=== PATIENT | female | born 1995 | race Caucasian/White ===

== ENCOUNTER 2018-09-02 21:01 | Emergency (ER) | payer OTHER ==
[~2018-09-02] VITALS: Ht 172.7 cm; Wt 74.8 kg
[~2018-09-02 21:01] MED LIST: ALBU90OI INH; AMIT10 PO; AMOX500 PO; Bactrim Ds Tab1 EACH PO; CARI350 PO; CEPH500 PO; CIPR500 PO; CLON.2 PO; CYCL10 PO; DIPH50 PO; FERR325 PO; FLUO10 PO; GABA600 PO; HYDACE5 PO; HYDACE5325 PO; IBUP600 PO; IBUP800 PO; KETO10 PO; MELA3 PO; MULVITMINE PO; NALT50 PO; Norco 5-325 Ta1 EACH PO; PENVK500 PO; PERM5TC TOP; PHENA100 PO; PROM25 PO; PROM25S PR; Pepcid40 MG PO; Permethrin60 GM TOP; Pseudoephedrine30 MG PO; Pyridium200 MG PO; RXCYCL10 PO; RXHYDACE PO; RXOXYACE PO; RXTRAM50 PO; TRAM50 PO; [UNRECOGNIZED DRUG - OTHER]; [UNRECOGNIZED DRUG - SUPPLY]
[2018-09-02] MEDS ORDERED: Monodox100 MG PO (21:39)
[2018-09-02] MEDS ORDERED: PROP10 PO (21:41)
== END 2018-09-02 22:10 | disposition home or self-care (01) ==
LOC: ER 21:01
DX: L02.411 Cutaneous abscess of right axilla (principal); G43.909 Migraine, unspecified, not intractable, without status migrainosus; F17.210 Nicotine dependence, cigarettes, uncomplicated; Z79.899 Other long term (current) drug therapy; Z86.14 Personal history of Methicillin resistant Staphylococcus aureus infection
CPT/HCPCS: 10060; 99283-25

== ENCOUNTER 2019-03-28 12:16 | Emergency (ER) | payer OTHER ==
[~2019-03-28] VITALS: Ht 172.7 cm; Wt 70.3 kg
[~2019-03-28 12:16] MED LIST changes: +Monodox100 MG PO; +PROP10 PO
[2019-03-28 12:46] LABS: BASOPHILS ABSOLUTE AUTO 0.04 K/mm3 (0.00-0.23); BASOPHILS PERCENT AUTO 1 % (0-2); EOSINOPHILS ABSOLUTE AUTO 0.14 K/mm3 (0.00-0.68); EOSINOPHILS PERCENT AUTO 2 % (0-6); Hematocrit 37.6 % (33.0-51.0); Hemoglobin 12.7 g/dL (11.5-16.0); IMMATURE GRAN ABSOLUTE AUTO 0.01 K/mm3 (0.00-0.10); IMMATURE GRAN PERCENT AUTO 0 % (0-1); LYMPHOCYTES ABSOLUTE AUTO 1.64 K/mm3 (0.84-5.20); LYMPHOCYTES PERCENT AUTO 23 % (21-46); MONOCYTES ABSOLUTE AUTO 0.58 K/mm3 (0.16-1.47); MONOCYTES PERCENT AUTO 8 % (4-13); Mean Corpuscular HGB 30.9 pg (26.0-34.0); Mean Corpuscular HGB Conc 33.8 g/dL (31.5-36.5); Mean Corpuscular Volume 92 fL (80-100); Mean Platelet Volume 11.5 fL (9.1-12.4); NEUTROPHILS ABSOLUTE AUTO 4.64 K/mm3 (1.96-9.15); NEUTROPHILS PERCENT AUTO 66 % (41-73); Platelet Count 168 K/mm3 (150-400); RDW Coefficient Variation 12.2 % (11.7-14.2); RDW Standard Deviation 40.9 fL (35.1-46.3); Red Blood Cell Count 4.11 M/mm3 (3.80-5.20); White Blood Cell Count 7.05 K/mm3 (4.00-11.30)
[2019-03-28 13:07] LABS: Alanine Aminotransfer (ALT/SGP 23 U/L (12-78); Albumin, Blood 3.9 g/dL (3.4-5.0); Albumin/Globulin Ratio 1.2 (0.8-1.8); Alk Phos 74 U/L (50-136); Anion Gap 7 mmol/L (6-16); Aspartate Aminotrans (AST/SGOT 26 U/L (12-37); Bilirubin, Total 0.7 mg/dL (0.1-1.0); Blood Urea Nitrogen 12 mg/dL (8-24); Bun/Creatinine Ratio 19.4 (12.0-20.0); CO2, Blood 26 mmol/L (21-32); Calcium, Blood 8.8 mg/dL (8.5-10.1); Chloride, Blood 105 mmol/L (98-108); Creatinine, Blood 0.62 mg/dL (0.40-1.00); Globulin, Blood 3.3 g/dL (2.2-4.0); Glomerular Filtration Rate >60 (60-); Glucose, Blood 92 mg/dL (70-99); Sodium, Blood 138 mmol/L (136-145); Total Protein, Blood 7.2 g/dL (6.4-8.2)
[2019-03-28] MEDS ORDERED: Augmentin 875-1 EACH PO (15:30)
[2019-03-28] MEDS ORDERED: Bactrim Ds Tab1 EACH PO (15:30)
== END 2019-03-28 15:44 | disposition home or self-care (01) ==
LOC: ER 12:16
PROVIDERS: Physician Assistant
DX: L03.213 Periorbital cellulitis (principal); F17.210 Nicotine dependence, cigarettes, uncomplicated
CPT/HCPCS: 36415; 70487; 80053; 84703; 85025; 99284-25; Q9967

== ENCOUNTER 2019-05-15 23:56 | Emergency (ER) | payer OTHER ==
[~2019-05-15] VITALS: Ht 172.7 cm; Wt 68.0 kg
[~2019-05-15 23:56] MED LIST changes: +Augmentin 875-1 EACH PO
[2019-05-16] MEDS ORDERED: Bactrim Ds Tab1 EACH PO (00:59)
== END 2019-05-16 01:10 | disposition home or self-care (01) ==
LOC: ER 23:56
DX: L02.413 Cutaneous abscess of right upper limb (principal); F17.210 Nicotine dependence, cigarettes, uncomplicated
CPT/HCPCS: 10060; 90471; 90714; 99282-25

== ENCOUNTER → 2019-07-01 | Outpatient (CLI) | payer OTHER ==
[2019-07-02 11:54] LABS: Candida species (DNA Probe) Negative (NEGATIVE); G. vaginalis (DNA Probe) Negative (NEGATIVE); T. vaginalis (DNA Probe) Positive (NEGATIVE)
[2019-07-03 01:07] LABS: HBSAG SCREEN Negative (Negative); HEP A AB, IGM Negative (Negative); HEP B CORE AB, IGM Negative (Negative); HEP C VIRUS AB <0.1 (0.0-0.9)
[2019-07-03 02:07] LABS: HIV SCREEN 4TH GENERATION WRFX Non Reactive (Non Reactive)
[2019-07-04 08:09] LABS: CHLAMYDIA TRACHOMATIS, NAA Negative (Negative); NEISSERIA GONORRHOEAE, NAA Negative (Negative)
== END | disposition home or self-care (01) ==
LOC: LAB SHORT 12:54 → LAB EV 12:54
PROVIDERS: Physician Assistant
DX: N76.0 Acute vaginitis (principal); Z20.9 Contact with and (suspected) exposure to unspecified communicable disease
CPT/HCPCS: 86592; 87480; 87510; 87529; 87660

== ENCOUNTER 2019-08-04 16:00 | Emergency (ER) | payer OTHER ==
[~2019-08-04] VITALS: Ht 172.7 cm; Wt 78.5 kg
[2019-08-04] MEDS ORDERED: Bactrim Ds Tab1 EACH PO (17:45)
[2019-08-04] MEDS ORDERED: CEPH500 PO (17:45)
== END 2019-08-04 18:00 | disposition home or self-care (01) ==
LOC: ER 16:00
DX: L02.411 Cutaneous abscess of right axilla (principal); F17.210 Nicotine dependence, cigarettes, uncomplicated
CPT/HCPCS: 10160; 99283-25; A9270-GY

== ENCOUNTER → 2021-08-01 | Outpatient (CLI) | payer OTHER ==
[2021-08-02 14:11] LABS: HPV 16 Negative (Negative); HPV 18 Negative (Negative); HPV OTHER HR TYPES Positive (Negative)
== END | disposition home or self-care (01) ==
LOC: LAB SHORT 10:00 → LAB 10:00
PROVIDERS: Nurse Practitioner Family
DX: Z11.51 Encounter for screening for human papillomavirus (HPV) (principal)
CPT/HCPCS: 87624; 87625; G0123

== ENCOUNTER 2022-09-30 21:53 | Emergency (ER) | payer OTHER ==
[~2022-09-30] VITALS: Ht 172.7 cm; Wt 117.0 kg
[2022-09-30] MEDS ORDERED: PROPRANOLOL HCL80 MG PO (22:00)
[2022-09-30] MEDS ORDERED: NEURONTIN300 MG PO (22:00)
[2022-09-30] MEDS ORDERED: PRAZ2 PO (22:00)
[2022-09-30] MEDS ORDERED: VITAMIN D5000 UNIT PO (22:00)
[2022-09-30] MEDS ORDERED: TOPI25 PO (22:00)
[2022-09-30] MEDS ORDERED: COLACE100 MG PO (22:01)
[2022-09-30] MEDS ORDERED: DEXTROAMPHETAMI10 M5 PO (22:02)
[2022-09-30] MEDS ORDERED: OMEP20ER PO (22:03)
[2022-09-30] MEDS ORDERED: Floxin10 ML RIGHTEYE (23:48)
== END 2022-09-30 23:55 | disposition home or self-care (01) ==
LOC: ER 21:53
DX: S05.01XA Injury of conjunctiva and corneal abrasion without foreign body, right eye, initial encounter (principal); X58.XXXA Exposure to other specified factors, initial encounter; F17.210 Nicotine dependence, cigarettes, uncomplicated; Z79.899 Other long term (current) drug therapy
CPT/HCPCS: A9270

== ENCOUNTER → 2022-12-05 | Outpatient (CLI) | payer OTHER ==
[~2022-12-05] MED LIST changes: +COLACE100 MG PO; +DEXTROAMPHETAMI10 M5 PO; +Floxin10 ML RIGHTEYE; +NEURONTIN300 MG PO; +OMEP20ER PO; +PRAZ2 PO; +PROPRANOLOL HCL80 MG PO; +TOPI25 PO; +VITAMIN D5000 UNIT PO
[2022-12-09 14:09] LABS: CHLAMYDIA TRACHOMATIS, NAA Negative (Negative)
== END | disposition home or self-care (01) ==
LOC: LAB SHORT 10:56 → LAB 10:56
PROVIDERS: Advanced Practice Midwife
DX: Z01.419 Encounter for gynecological examination (general) (routine) without abnormal findings (principal); Z11.3 Encounter for screening for infections with a predominantly sexual mode of transmission
CPT/HCPCS: 87491; 87591; G0145

== ENCOUNTER → 2023-05-12 | Outpatient (CLI) | payer OTHER | END | disposition home or self-care (01) | LOC: LAB 13:50 → LAB SHORT 13:50 | DX: O09.92 Supervision of high risk pregnancy, unspecified, second trimester (principal); Z3A.00 Weeks of gestation of pregnancy not specified | CPT/HCPCS: 87081; 87150 ==

== ENCOUNTER 2023-05-26 07:15 | Inpatient (IN) | payer OTHER ==
[~2023-05-26] VITALS: Ht 172.7 cm; Wt 110.0 kg
[2023-05-26] VITALS (20 sets, daily range): BP systolic 118–169; BP diastolic 56–89
[2023-05-26] MEDS ORDERED: METH40 PO (08:13)
[2023-05-26] MEDS ORDERED: BENADRYL25 MG PO (08:14)
[2023-05-26] MEDS ORDERED: MELATONIN10 M1 PO (08:14)
[2023-05-26] MEDS ORDERED: PRENATAL TABLE1 EAC2 PO (08:15)
[2023-05-26 08:40] LABS: BASOPHILS ABSOLUTE AUTO 0.05 K/mm3 (0.00-0.23); BASOPHILS PERCENT AUTO 1 % (0-2); EOSINOPHILS ABSOLUTE AUTO 0.15 K/mm3 (0.00-0.68); EOSINOPHILS PERCENT AUTO 2 % (0-6); Hematocrit 34.8 % (33.0-51.0); Hemoglobin 11.9 g/dL (11.5-16.0); IMMATURE GRAN ABSOLUTE AUTO 0.03 K/mm3 (0.00-0.10); IMMATURE GRAN PERCENT AUTO 0 % (0-1); LYMPHOCYTES ABSOLUTE AUTO 3.03 K/mm3 (0.84-5.20); LYMPHOCYTES PERCENT AUTO 30 % (21-46); MONOCYTES ABSOLUTE AUTO 0.79 K/mm3 (0.16-1.47); MONOCYTES PERCENT AUTO 8 % (4-13); Mean Corpuscular HGB 31.1 pg (26.0-34.0); Mean Corpuscular HGB Conc 34.2 g/dL (31.5-36.5); Mean Corpuscular Volume 91 fL (80-100); Mean Platelet Volume 12.8 fL (9.1-12.4); NEUTROPHILS ABSOLUTE AUTO 6.12 K/mm3 (1.96-9.15); NEUTROPHILS PERCENT AUTO 60 % (41-73); Platelet Count 220 K/mm3 (150-400); RDW Coefficient Variation 13.2 % (11.7-14.2); RDW Standard Deviation 43.8 fL (35.1-46.3); Red Blood Cell Count 3.83 M/mm3 (3.80-5.20); White Blood Cell Count 10.17 K/mm3 (4.00-11.30)
[2023-05-27 03:10] VITALS: BP 129/69
[2023-05-27 07:53] VITALS: BP 127/72
--- NOTE | 2023-05-27 10:14 | NUR ---
ASSUME PT CARE. PT UP AMBULATING IN THE ROOM. HODAN SELF AND NB CARE WELL. NO QUESTIONS OR CONCERNS AT THIS TIME. PT DOES STATE SHE FEELS VERY TIRED AND WILL BE TAKING A NAP. PT TO CALL IF SHE HAS ANY NEEDS OR CONCERNS.
[2023-05-27 13:41] VITALS: BP 121/68
[2023-05-27 17:00] VITALS: BP 152/70
--- NOTE | 2023-05-27 17:02 | NUR ---
1600: PT REPORTS FEELING VERY ANXIOUS. WENT OUTSIDE TO WALK FOR AWHILE WITH HER MOM. CAME BACK AND TOOK A SHOWER. REPORTED FEELING A LITTLE BETTER. PT DID ASK FOR ANTIANXIETY MEDICATION BUT WAS INFORMED NOTHING WAS ORDERED AT THIS TIME. PT TO LET RN KNOW IF SHE FEELS LIKE SHE NEEDS SOMETHING EVEN AFTER DOING SOME RELAXATION AND DISTRACTION. 1700: PT REPORTS FEELING OKAY AT THE MOMENT BUT IS AFRAID SHE WILL NOT BE IN THE MIDDLE OF THE NIGHT. SHE PLANS TO HAVE HER MOM STAY WITH HER TO HELP WITH NB AND TO BE HERE A SUPORT FOR HER. PT DID ASK THAT WE TALK TO HER PROVIDER TO GET SOMETHING ORDERED IF NEEDED. CALL TO [facility]REA MADE AND ORDERS RECEIVED
[2023-05-27 19:04] VITALS: BP 147/82
[2023-05-28 09:37] VITALS: BP 138/84
[2023-05-28] MEDS ORDERED: IBUP800 PO (12:57)
[2023-05-28 15:53] VITALS: BP 150/84
[2023-05-28 21:32] VITALS: BP 146/70
--- NOTE | 2023-05-28 21:33 | NUR ---
Went over discharge instructions with patient. She voiced agreement to be discharged to [facility], as her daughter will be admitted for a few more days. She has no further questions.
--- NOTE | 2023-05-28 21:52 | NUR ---
Pt scored 15 on [place] scale and scored 0 for question 10. Call to Elieser to see if he'd like to keep patient for consult in the morning with social service technician. He said he spoke in length with pt regarding her anxiety and depression and h/o depression. The pt is going to counseling and Elieser started pt on new depression and anxiety medication. He would like to go ahead and continue her discharge and pt will be following up with him after her baby is discharged as well. Pt notified.
== END 2023-05-28 21:55 | disposition home or self-care (01) | DRG 806 ==
LOC: BC 07:15 → OBS 07:15 → BC 07:31
PROVIDERS: ADMIT Advanced Practice Midwife
PROC: 10E0XZZ Delivery of Products of Conception, External Approach (ICD-10-PCS; principal; 2023-05-26)
PROC: 10907ZC Drainage of Amniotic Fluid, Therapeutic from Products of Conception, Via Natural or Artificial Opening (ICD-10-PCS; 2023-05-26)
PROC: 3E033VJ Introduction of Other Hormone into Peripheral Vein, Percutaneous Approach (ICD-10-PCS; 2023-05-26)
PROC: 3E0R3BZ Introduction of Anesthetic Agent into Spinal Canal, Percutaneous Approach (ICD-10-PCS; 2023-05-26)
PROC: 00HU33Z Insertion of Infusion Device into Spinal Canal, Percutaneous Approach (ICD-10-PCS; 2023-05-26)
DX: O99.324 Drug use complicating childbirth (principal); F11.20 Opioid dependence, uncomplicated; Z37.0 Single live birth; O99.354 Diseases of the nervous system complicating childbirth; O99.214 Obesity complicating childbirth; Z3A.39 39 weeks gestation of pregnancy; Z86.16 Personal history of COVID-19; F90.9 Attention-deficit hyperactivity disorder, unspecified type; O99.344 Other mental disorders complicating childbirth; F41.9 Anxiety disorder, unspecified; G25.81 Restless legs syndrome; O99.824 Streptococcus B carrier state complicating childbirth; O99.334 Smoking (tobacco) complicating childbirth; F17.210 Nicotine dependence, cigarettes, uncomplicated; Z71.6 Tobacco abuse counseling; Z79.899 Other long term (current) drug therapy
CPT/HCPCS: 36415; 51702; 85025; 86850; 86900; 86901; A9270; J0290; J1885; J2590; J7120

== ENCOUNTER 2024-09-10 03:13 | Day surgery (SDC) | payer OTHER ==
[~2024-09-10] VITALS: Wt 118.1 kg
[~2024-09-10 03:13] MED LIST changes: +BENADRYL25 MG PO; +MELATONIN10 M1 PO; +METH40 PO; +PRENATAL TABLE1 EAC2 PO
[2024-09-10 14:50] VITALS: BP 131/77
[2024-09-10] MEDS ORDERED: Infliximab-DYYB 600 MG in NS 250 ML IV SCH (15:05)
[2024-09-10 15:42] VITALS: BP 120/68
[2024-09-10 16:00] VITALS: BP 113/73
[2024-09-10 16:16] VITALS: BP 118/76
[2024-09-10 16:30] VITALS: BP 144/66
[2024-09-10 17:00] VITALS: BP 113/70
== END 2024-09-10 17:31 | disposition home or self-care (01) ==
LOC: ATC 03:13
DX: L40.0 Psoriasis vulgaris (principal); L40.8 Other psoriasis; F17.210 Nicotine dependence, cigarettes, uncomplicated; Z79.899 Other long term (current) drug therapy
CPT/HCPCS: 96413; 96415; J7050; Q5103

== ENCOUNTER 2024-09-24 14:14 | Day surgery (SDC) | payer OTHER ==
[2024-09-24 14:51] VITALS: BP 125/91
[2024-09-24] MEDS ORDERED: Infliximab-DYYB 600 MG in NS 250 ML IV SCH (14:55)
== END 2024-09-24 17:31 | disposition home or self-care (01) ==
LOC: ATC 14:14
DX: L40.0 Psoriasis vulgaris (principal); L40.8 Other psoriasis; L40.1 Generalized pustular psoriasis; F90.9 Attention-deficit hyperactivity disorder, unspecified type; F17.200 Nicotine dependence, unspecified, uncomplicated; Z79.899 Other long term (current) drug therapy
CPT/HCPCS: 96413; 96415; J7050; Q5103

== ENCOUNTER 2024-10-22 02:02 | Day surgery (SDC) | payer OTHER ==
--- NOTE | 2024-10-21 14:46 | NUR ---
Pt rescheduled for tomorrow.
[~2024-10-22] VITALS: Wt 117.9 kg
[2024-10-22 09:14] VITALS: BP 130/83
[2024-10-22] MEDS ORDERED: Infliximab-DYYB 600 MG in NS 250 ML IV SCH (09:45)
== END 2024-10-22 12:10 | disposition home or self-care (01) ==
LOC: ATC 02:02
DX: L40.0 Psoriasis vulgaris (principal); L40.8 Other psoriasis; L40.1 Generalized pustular psoriasis; F17.210 Nicotine dependence, cigarettes, uncomplicated; Z79.899 Other long term (current) drug therapy
CPT/HCPCS: 96413; 96415; J7050; Q5103

== ENCOUNTER 2024-12-29 02:01 | Day surgery (SDC) | payer OTHER ==
[~2024-12-29] VITALS: Wt 114.9 kg
[2024-12-29 09:00] VITALS: BP 124/96
[2024-12-29] MEDS ORDERED: Infliximab-DYYB 600 MG in NS 250 ML IV SCH (09:30)
[2024-12-29] MEDS ORDERED: Adipex-P37.5 M1 PO (10:08)
== END 2024-12-29 11:51 | disposition home or self-care (01) ==
LOC: ATC 02:01
DX: L40.0 Psoriasis vulgaris (principal); F17.200 Nicotine dependence, unspecified, uncomplicated; Z79.899 Other long term (current) drug therapy
CPT/HCPCS: 96413; 96415; J7050; Q5103

== ENCOUNTER 2025-02-23 02:40 | Day surgery (SDC) | payer OTHER ==
[~2025-02-23 02:40] MED LIST changes: +Adipex-P37.5 M1 PO
--- NOTE | 2025-02-23 11:01 | NUR ---
Pt did not show for her appoitment in the [facility] today.
== END 2025-02-23 23:00 | disposition home or self-care (01) ==
LOC: ATC 02:40
DX: L40.0 Psoriasis vulgaris (principal); F17.200 Nicotine dependence, unspecified, uncomplicated; Z79.899 Other long term (current) drug therapy